=== PATIENT | female | born 1965 | race Two or more races ===

== ENCOUNTER 2016-12-03 17:06 | Emergency (ER) | payer MEDICAID ==
[~2016-12-03] VITALS: Ht 157.5 cm; Wt 64.0 kg
[2016-12-03 17:11] VITALS: Ht 157.5 cm; Wt 64.0 kg
[2016-12-03] MEDS ORDERED: IBUPROFEN 600 MG TAB PO ONE (18:00)
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
[2016-12-03] MEDS ORDERED: ULT50 PO (19:01)
[2016-12-03] MEDS ORDERED: IBUP-1542 PO (19:01)
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
[2016-12-03 19:16] VITALS: BP 132/78; PULSE 84; RESP 20; TEMP 98
== END 2016-12-03 19:17 | disposition home or self-care (01) ==
LOC: FTE 17:06
DX: S33.8XXA Sprain of other parts of lumbar spine and pelvis, initial encounter (principal); V89.2XXA Person injured in unspecified motor-vehicle accident, traffic, initial encounter
CPT/HCPCS: 72100; Z7502; Z7610